=== PATIENT | male | born 1965 | race Caucasian/White ===

== ENCOUNTER 2019-04-10 14:57 | Emergency (ER) | payer OTHER, SELFPAY ==
[2019-04-10 14:59] VITALS: BP 158/102; PULSE 111; RESP 16; TEMP 36.1; O2SAT 98; BMI 32.6
--- NOTE | 2019-04-10 15:41 | ED.VISSUMM ---
- ER Visit Summary Date of Service: 04/10/19 Chief Complaint: Nosebleed History of Present Illness: The patient is a 53 M who presents for 3 hours of a nosebleed. Patient states this is his 6 time, and it is always out of his left nostril. 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 Patient denies being on any blood thinners. Denies any nausea, lightheadedness, dizziness. Denies trauma. Physical Examination: Awake and alert in no distress. Nasal clamp in place. Upon removal, slow ooze of blood from the left nostril, from anterior naris with noted linear abrasion along the anterior septum. No blood noted in the posterior oropharynx Test Results: Medications Given Discontinued Medications Aspirin (Aspirin, Baby) 324 mg PO X1 STA Stop: 04/10/19 16:54 Sodium Chloride () 1,000 mls @ 1,000 mls/hr IV .Q1H ONE Stop: 04/10/19 17:52 Oxymetazoline HCl (Afrin (Bkc)) 1 spray NASAL X1 ONE Stop: 04/10/19 15:42 Last Admin: 04/10/19 15:47 Dose: 1 spray Silver Nitrate/Potassium Nitrate (Silver Nitrate (Bkc)) 1 each TOPICAL X1 ONE; Protocol Stop: 04/10/19 16:14 Last Admin: 04/10/19 16:53 Dose: 1 each Emergency Department Course and Treatment: Afrin was instilled in the left nostril after the patient gently blew out clots. The naris was then packed with a cotton pledgelet soaked in peri's mix . The nasal clamp was reapplied. After several minutes, the naris was reexamined and the linear abrasion was well visualized. Cauterization with silver nitrate was attempted, however the bleeding resumed and cauterization was unsuccessful. The left naris was then packed with a anterior Rhino Rocket and successful hemostasis was achieved. Patient is to follow-up in 24 to 48 hours with his doctor for reevaluation and removal of the packing. Discussed with patient not to blow his nose or pick at his nose at work, as this will cause him to continue having nosebleeds. Patient discharged home with epistaxis resolved. Treatment Plan: [] Disposition: [] Impression: Left anterior epistaxis This note was generated with Dragon dictation software. It may contain incorrect words, spelling, and punctuation that were not noted in review of the chart prior to signing ED Disposition - Plan for ED Patient: Disposition: Home or Assisted Living Instructions: ED Nosebleed Referrals: Bi Mendez MD [Primary Care Provider] - 1 Day for another exam Additional Instructions: Please leave the packing in place and have it re-evaluated and removed by a doctor in 24-48 hours. If you do not have a doctor you can follow up with, you may return to the emergency department for reevaluation. If you begin having bleeding again and cannot control it with pinching the nostrils for 30 minutes, please return to emergency department for further evaluation. If you have any worsening of your condition or any new concerning symptoms, please return immediately to the emergency department for another evaluation.
[2019-04-10] MEDS: Oxymetazoline 0.05% 1 SPRAY SPRAY.BTL NASAL (15:47)
[2019-04-10] MEDS: Silver Nitrate (BKC) 1 EACH TOPICAL (16:53)
[2019-04-10 17:06] VITALS: BP 134/105; PULSE 102; RESP 16; O2SAT 98
== END 2019-04-10 17:07 | disposition home or self-care (01) ==
PROVIDERS: Emergency Provider Emergency Medicine; Family Provider Family Medicine; PCP Family Medicine
DX: R04.0 Epistaxis (principal); I10 Essential (primary) hypertension; Z79.82 Long term (current) use of aspirin
CPT/HCPCS: 30901; 99282

== ENCOUNTER 2022-01-20 08:28 | Outpatient (CLI) | payer OTHER, SELFPAY ==
[2022-01-20 10:34] LABS: Anion Gap 8 (5-15); BUN 17 mg/dL (7-18); BUN/Creat Ratio 14.7 RATIO (10-20); Calcium,Total 9.1 mg/dL (8.5-10.1); Chloride 100 mmol/L (98-107); Cholesterol 189 mg/dL (200); Creatinine, Serum 1.16 mg/dL (0.70-1.30); EST Glomerular Filtration Rate 69 mL/min (>60); Est Glom Filt Rate - Afr Amer 83 mL/min (>60); Glucose 94 mg/dL (74-106); High Density Lipoprotein 63 mg/dL; PSA,Total - Annual Screen 1.38 ng/mL (0.00-4.00); Potassium 4.2 mmol/L (3.5-5.1); Sodium Level 135 mmol/L (136-145); Triglycerides 61 mg/dL; Very Low Density Lipoprotein 12 mg/dL (5-40)
== END 2022-01-20 23:59 | disposition home or self-care (01) ==
LOC: MFPLAB 08:31
PROVIDERS: PCP Family Medicine; Referring Provider Family Medicine; Visit Provider Family Medicine
DX: Z12.5 Encounter for screening for malignant neoplasm of prostate (principal); I10 Essential (primary) hypertension
CPT/HCPCS: 36415; 80048; 80061; 84153; G0103

== ENCOUNTER → 2023-08-18 | Outpatient (CLI) | payer OTHER, SELFPAY ==
[2023-08-18 11:21] LABS: Anion Gap 6 (5-15); BUN 15 mg/dL (7-18); Calcium,Total 9.6 mg/dL (8.5-10.1); Chloride 101 mmol/L (98-107); Cholesterol 172 mg/dL (200); Creatinine, Serum 1.07 mg/dL (0.70-1.30); EST Glomerular Filtration Rate 75 mL/min (>60); Est Glom Filt Rate - Afr Amer 91 mL/min (>60); Glucose 90 mg/dL (74-106); High Density Lipoprotein 82 mg/dL; PSA,Total - Annual Screen 1.91 ng/mL (0.00-4.00); Potassium 4.3 mmol/L (3.5-5.1); Sodium Level 133 mmol/L (136-145); Triglycerides 41 mg/dL; Very Low Density Lipoprotein 8 mg/dL (5-40)
== END | disposition home or self-care (01) ==
LOC: MFPLAB 09:49
PROVIDERS: PCP Family Medicine; Visit Provider Family Medicine
DX: Z00.00 Encounter for general adult medical examination without abnormal findings (principal); Z12.5 Encounter for screening for malignant neoplasm of prostate
CPT/HCPCS: 36415; 80048; 80061; 84153; G0103

== ENCOUNTER 2024-02-05 09:25 | Emergency (ER) | payer OTHER, SELFPAY ==
[2024-02-05 09:27] VITALS: BP 184/124; PULSE 102; RESP 16; TEMP 36.6; O2SAT 99; BMI 31.7
[2024-02-05] MEDS: DiphenhydrAMINE 50 MG/ML Syringe 25 MG IV (10:10)
[2024-02-05] MEDS: Famotidine 200 MG/20 ML MDV 20 MG in 0.9% Normal Saline (Pres. free 8 ML 300 MG IV (10:11)
[2024-02-05] MEDS: MethylPREDNISolone 125 MG/2 ML Vial IV (10:11)
[2024-02-05] MEDS: Epi Pen (EQUIV) 0.3 MG Syringe 0.299999999999999989 MG IM (10:12)
[2024-02-05 10:15] VITALS: BP 177/115; PULSE 95; RESP 18; O2SAT 98
--- OUTSIDE RECORDS SUMMARY | 2024-02-05 10:28 | XMS RPT_ITS | CCD ---
Author Name Unknown Address [address] [place] [address] Organization [facility] Care Team Providers Care Lead Java Programmer Name Role Phone Luz Fang LPN Unavailable Allergies Allergy Classification Reported Allergen(s) Allergy Type Date of Onset Reaction(s) Facility (1 source) penicillin g drug allergy 03-02-2017 [facility] Work Phone: Medications Completed/Discontinued Medications Medication Drug Class(es) Dates Sig (Normalized) Sig (Original) lisinopril 20 mg oral tablet (1 source) Angiotensin Converting Enzyme Inhibitor Start: 03-02-2017 LISINOPRIL 20 MG TABS take as directed LISINOPRIL [id number] Luz Fang LPN Problems Active Problems Problem Classification Problem Date Documented Da te Episodic/Chronic Essential hypertension (1 source) Hypertensive disorder; Translations: [Essential (primary) hypertension] 03-02-2017 Chronic Past or Other Problems Problem Classification Problem Date Documented Da te Episodic/Chronic Fracture of upper limb (1 source) Displaced fracture of distal phalanx of other finger, initial encounter for open fracture; Translations: [Displaced fracture of distal phalanx of other finger, initial encounter for open fracture] Onset: 02-17-2017 03-02-2017 Episodic Open wounds of extremities (1 source) Laceration without foreign body of unspecified finger without damage to nail, initial encounter; Translations: [Laceration without foreign body of unspecified finger without damage to nail, initial encounter] Onset: 02-17-2017 03-02-2017 Episodic Results Test Name Value Interpretation Reference Range Facil ity Vital Signs Date Time Vital Sign Value Performing Clinician Faci lity 03-05-2017 07:30-0400 BMI (Body Mass Index) 33.84 kg/m2 Luz Fang LPN [facility] Work Phone: 03-05-2017 07:30-0400 Body Temperature 99 [degF] Luz Fang LPN [facility] Work Phone: 03-05-2017 07:30-0400 BP Diastolic 102 mm[Hg] Luz Fang LPN [facility] Work Phone: 03-05-2017 07:30-0400 BP Systolic 150 mm[Hg] Luz Fang LPN [facility] Work Phone: 03-05-2017 07:30-0400 Height 172.72 cm Luz Fang LPN [facility] Work Phone: 03-05-2017 07:30-0400 Pulse (Heart Rate) 89 /min Luz Fang LPN [facility] Work Phone: 03-05-2017 07:30-0400 Pulse Oximetry 99 % Luz Fang LPN [facility] Work Phone: 03-05-2017 07:30-0400 Respiratory Rate 16 /min Luz Fang LPN [facility] Work Phone: 03-05-2017 07:30-0400 Weight 100.97 kg Luz Fang LPN [facility] Work Phone: Plan of Treatment Date Care Activity Detail Author Patient Education [email or web address] [facility] Work Phone: Additional Source Comments FOR RECORDS PERTAINING TO PATIENTS WHO ARE OR HAVE BEEN ENROLLED IN A CHEMICAL DEPENDENCY/SUBSTANCEABUSE PROGRAM, SOME INFORMATION MAY BE OMITTED. This clinical summary was aggregated from multiple sources. Caution should be exercised in using it in the provision of clinical care. This summary normalizes information from multiple sources, and as a consequence, information in this document may materially change the coding, format and clinical context of patient data. In addition, data may be omitted in some cases. CLINICAL DECISIONS SHOULD BE BASED ON THE PRIMARY CLINICAL RECORDS. [facility] [employer] [facility]. provides no warranty or guarantee of the accuracy or completeness of information in this document.
[2024-02-05 11:09] VITALS: BP 156/96; PULSE 105; RESP 18; O2SAT 96
[2024-02-05 12:45] VITALS: BP 134/97; PULSE 98; RESP 14; O2SAT 98
--- NOTE | 2024-02-05 12:48 | ED.RN ---
calling pt's PCP prior to dc
--- NOTE | 2024-02-05 12:57 | EX.ED.DYSGE1 ---
HPI History of Present Illness Chief Complaint: Allergic Reaction Informant: patient Onset/Context/Timing Onset: Today Context: Gradual Onset Quality: swelling Location: lower face/lip Current Severity: Severe Maximum Severity: Severe Worsened by: nothing Relieved by: nothing Associated Symptoms Associated Symptoms: none Narrative Narrative: 58-year-old male presents with painless swelling to his lower face and lower lip. He states this started this morning as he was arriving at work. He took his usual blood pressure medication this morning prior to going, which is lisinopril/HCTZ, which she has been on for about 15 years he states. Upon getting the swelling he took another blood pressure pill for reasons that are unclear. He denies any tongue or throat involvement or dyspnea or trouble swallowing. He denies any rash or pruritus. No edema of his hands or feet. He has never had this happen before. [facility] Medical History Hypertension Allergy/AdvReac Type Severity Reaction Status Date / Time lisinopril Allergy Severe Angioedema Verified 02/05/24 12:49 Penicillins AdvReac Unknown Verified 02/05/24 09:29 Surgical History History of hernia surgery Social History Smoking Status: Never smoker ROS ROS ED Constitutional Constitutional ED: Denies chills or fever(s) Eyes Eyes: Denies change in vision or diplopia ENT ENT ED: Reports other Details: Facial swelling see HPI ; Denies rhinorrhea or sore throat Cardiovascular Cardiovascular: Denies chest pain or palpitations Respiratory/Chest Respiratory/Chest: Denies cough or dyspnea Gastrointestinal Gastrointestinal: Denies abdominal pain, diarrhea, nausea or vomiting Genitourinary Genitourinary ED: Denies dysuria or hematuria Musculoskeletal Musculoskeletal: Denies back pain or neck pain Integumentary Denies abscess or rash Neurologic Neurologic: Denies headache(s), paresthesias or weakness Psychiatric Psychiatric: Denies anxiety or suicidal thoughts EXAM Physical Exam Const Vital Signs: 02/05/24 09:27 02/05/24 10:15 02/05/24 11:09 Temperature 97.9 F Temperature Source Temporal Pulse Rate 102 H 95 105 H Respiratory Rate 16 18 18 Blood Pressure 184/124 H 177/115 H 156/96 H Blood Pressure Mean 144 135 116 Pulse Ox 99 98 96 Oxygen Delivery Method Room Air Room Air Room Air 02/05/24 12:45 Temperature Temperature Source Pulse Rate 98 Respiratory Rate 14 Blood Pressure 134/97 H Blood Pressure Mean 109 Pulse Ox 98 Oxygen Delivery Method Room Air Positive well nourished and well developed General Appearance ED: well developed and NAD HEENT Reports moist mucous membranes HEENT Narrative: Diffuse edema of the lower face and lower lip but not the upper lip, tongue, throat. No stridor. Talking normally. No tenderness or signs of cellulitis/infection. normocephalic and atraumatic Eyes PERRL and EOMs intact bilaterally Neck full ROM and supple Resp normal respiratory effort and clear to auscultation bilaterally Cardio regular rate, regular rhythm and no murmurs Rate: Negative for tachycardic GI non-tender and non-distended Auscultation: normoactive bowel sounds Palpation: soft Back/Spine no CVA tenderness General Back: other FROM Extremity normal to inspection General Extremety ED: Negative for edema, pulses abnormal or tenderness General Extremity: Negative for edema or pulses abnormal Neuro oriented x3, CN's II-XII intact bilaterally and no sensory deficits noted Sensorium / Orientation: awake and alert Motor Exam: strength 5/5 throughout Skin no rashes or lesions noted and no wounds MDM MDM MDM Narrative Medical decision making narrative: Although I suspect that this is related to the lisinopril he is on, I empirically treated him with an EpiPen, Solu-Medrol, Benadryl, and Pepcid and observed him. These medicines did not improve anything, however he did not worsen. He was observed for almost 4 hours. On reexamination, nursing and myself both think he actually looks a little improved. He states he definitely does not feel any worse and has no other symptoms including tongue or throat involvement. I am comfortable with discharging him home he is as well. He knows reasons to return. I discussed with Dr. Merino on-call for his PCP who advises leaving him off his blood pressure medication right now since he is not on a high dose and following up in the office which I think is reasonable. Discharge Plan Triage Chief Complaint: Allergic Reaction ED Provider: Mookie Vazquez Dx/Rx/DC Orders Clinical Impression: Angioedema Instructions: ED Angioedema Prescriptions: Discontinued lisinopril-hydrochlorothiazide 20-12.5 mg tablet 1 tab PO DAILY Primary Care Provider: Bi Mendez Referrals: Bi Mendez MD [Primary Care Provider] - As soon as possible Activity Restrictions/Additional Instructions: Stop taking your blood pressure medication immediately. Your primary care doctor will wait to start you on something new, follow-up next week. Disposition Disposition: Home, Self Care
[2024-02-05 13:10] VITALS: BP 134/97; PULSE 98; RESP 14; TEMP 36.6; O2SAT 98
== END 2024-02-05 13:11 | disposition home or self-care (01) ==
PROVIDERS: Emergency Provider Emergency Medicine; PCP Family Medicine; Visit Provider Emergency Medicine
DX: T78.3XXA Angioneurotic edema, initial encounter (principal); I10 Essential (primary) hypertension
CPT/HCPCS: 96374; 96375; 99283; A4216; J3490